=== PATIENT | female | born 1985 | race Caucasian/White ===

== ENCOUNTER 2017-07-20 19:48 | Emergency (ER) | payer MEDICAID, OTHER ==
[~2017-07-20] VITALS: Ht 162.6 cm; Wt 89.1 kg
[~2017-07-20 19:48] MED LIST: BUTACAP2 PO
[2017-07-20 20:03] VITALS: BP 136/90; PULSE 85; RESP 16; TEMP 97.7; O2SAT 100
[2017-07-20] MEDS ORDERED: VENTAER INH (20:39)
--- NOTE | 2017-07-20 20:40 | PD ---
HPI Chief Complaint: Cold / Flu Symptoms Time Seen by Provider: 20:33 Travel History International Travel<30 days: No Contact w/Intl Traveler<30days: No Traveled to known affect area: No History of Present Illness HPI This patient complains of cough and congestion. Duration 3 days. Severity is moderate. Denies fever. Nonsmoker. PFSH Past Medical History Diminished Hearing: No Respiratory: Yes Migraines: Yes Influenza Vaccination: No ?: Not LMP: 2 WEEKS AGO : 6 Para: 5 Miscarriage: 1 Tubal Ligation: Yes (2009) Past Surgical History Section: Yes (2006, 2009) Cholecystectomy: Yes Social History Alcohol Use: Yes (OCCASIONAL) Tobacco Use: No Substance Use: No Allergies-Medications (Allergen,Severity, Reaction): Coded Allergies: morphine (Unverified Allergy, Severe, HIVES, 07/20/17) Reported Meds & Prescriptions Reported Meds & Active Scripts Active Ventolin Hfa 18 GM Inh (Albuterol Sulfate) 90 Mcg/Act Aer 1 Puff INH Q4H PRN Review of Systems HENT: No: Headaches Cardiovascular: No: Chest Pain or Discomfort Respiratory: Positive: Cough Physical Exam Narrative RESPIRATORY: Respiratory effort unlabored, no retractions or use of accessory muscles. Breath sounds are clear and symmetric. NECK: Symmetrical appearance, midline trachea. No mass or crepitus. Thyroid without enlargement, tenderness, or mass. Throat clear Data Data Last Documented VS Vital Signs Date Time Temp Pulse Resp B/P (MAP) Pulse Ox O2 Delivery O2 Flow Rate FiO2 07/20/17 20:03 97.7 85 16 136/90 (105) 100 MDM Medical Decision Making Medical Screen Exam Complete: Yes Emergency Medical Condition: Yes Medical Record Reviewed: Yes Differential Diagnosis Bronchitis, URI, pneumonia Narrative Course I have reviewed the patient's electronic medical record. Presentation is consistent with acute viral bronchitis No indication for antibiotics Albuterol inhaler prescribed to use as needed Diagnosis Primary Impression: Acute viral bronchitis Additional Instructions: The patient was advised to follow up with their physician and return if they worsen. Med/Other Pt SpecificInfo: Other Scripts Albuterol 18 GM Inh (Ventolin Hfa 18 GM Inh) 90 Mcg/Act Aer 1 PUFF INH Q4H Y for SHORTNESS OF BREATH, #1 INHALER 0 Refills Prov: Td Zamora MD 07/20/17 Disposition: 01 DISCHARGE HOME Condition: Stable Td Zamora MD Jul 20, 2017 20:40
== END 2017-07-20 20:46 | disposition home or self-care (01) ==
LOC: PHEFT 19:48
DX: J20.8 Acute bronchitis due to other specified organisms (principal); B97.89 Other viral agents as the cause of diseases classified elsewhere; Z87.09 Personal history of other diseases of the respiratory system; Z86.69 Personal history of other diseases of the nervous system and sense organs
CPT/HCPCS: 99283